=== PATIENT | female | born 1945 | race Hispanic/Latino ===

== ENCOUNTER 2021-09-29 11:24 | Outpatient (CLI) | payer MEDICARE ==
--- NOTE | 2021-09-29 12:53 | Cat Scan Report ---
CT CHEST WITHOUT CONTRAST INDICATION / CLINICAL INFORMATION: COUGH,FORMER SMOKER. TECHNIQUE: Axial CT images were obtained through the chest without contrast. Sagittal and coronal reformatted im ages. All CT scans at this location are performed using CT dose reduction for ALARA by means of autom ated exposure control. COMPARISON: None available. FINDINGS: HEART: Heart size is normal with moderate three-vessel coronary artery calcifications. No pericardial abnormality. THORACIC AORTA: Moderate atherosclerotic calcification without acute abnormality. MEDIASTINUM and MARIA ISABEL: No significant abnormality. LUNGS: The lungs are clear with no evidence for nodule, mass or acute infiltrate. Mild chronic inters titial changes are noted in the lower lobes. PLEURA: No significant pleural effusion. No pneumothorax. SKELETAL SYSTEM: No significant abnormality. UPPER ABDOMEN: No significant abnormality. ADDITIONAL FINDINGS: None. IMPRESSION: No acute abnormality, mass or adenopathy. Moderate atherosclerotic disease as described. Signer Name: Moody Hart Jr, MD Signed: 09/29/2021 12:49 PM Workstation Name: [id number]
== END 2021-09-29 11:25 | disposition home or self-care (01) ==
LOC: CT 11:24
PROVIDERS: ATTEND Internal Medicine Cardiovascular Disease
DX: R05.3 Chronic cough (principal); I25.10 Atherosclerotic heart disease of native coronary artery without angina pectoris; I70.0 Atherosclerosis of aorta; Z87.891 Personal history of nicotine dependence
CPT/HCPCS: 71250